=== PATIENT | male | born 1975 | race Caucasian/White ===

== ENCOUNTER → 2020-11-20 | Outpatient (CLI) | payer BC ==
--- NOTE | 2020-11-20 10:29 | XR ---
EXAMINATION TYPE: XR knee complete LT DATE OF EXAM: 11/20/2020 COMPARISON: None HISTORY: 45-year-old male M25.562 TECHNIQUE: 4 views FINDINGS: Extensor mechanism is intact. No significant joint effusion. No acute fracture, subluxation, dislocat ion seen. The patella appropriately situated along the trochlear groove. IMPRESSION: No acute osseous abnormality seen.
== END | disposition home or self-care (01) ==
LOC: LABWHC1 09:47
PROVIDERS: ATTEND Internal Medicine
DX: M25.562 Pain in left knee (principal)

== ENCOUNTER → 2024-10-12 | Outpatient (CLI) | payer BC ==
--- NOTE | 2024-10-12 08:17 | US ---
EXAMINATION TYPE: US liver DATE OF EXAM: 10/12/2024 COMPARISON: NONE CLINICAL INDICATION: Male, 49 years old with history of R74.01 Elevation of levels of liver transamin ase l; elevated liver enzymes TECHNIQUE: Grayscale and color Doppler imaging of the right upper quadrant was performed. FINDINGS: EXAM MEASUREMENTS: Liver Length: 19.9 cm Gallbladder Wall: 0.15 cm CBD: 0.38 cm Right Kidney: 11.3 x 5.9 x 5.6 cm REFERRAL MANAGEMENT LIAISON NOTES: Pancreas: partially obscured by overlying bowel gas, parts seen appear wnl Liver: enlarged and heterogeneous some mild fatty infiltration is present. Gallbladder: wnl Evidence for sonographic Hudson's sign: no CBD: wnl Right Kidney: wnl IMPRESSION: 1. Hepatomegaly with mild fatty infiltration [facility], , 10/12/2024 8:14 AM
[2024-10-12 15:41] LABS: Hepatitis B Surface Antigen Nonreactive (Nonreactive); Hepatitis C IgG Antibody Nonreactive (Nonreactive)
[2024-10-12 15:47] LABS: Basophils # (A) 0.02 X 10*3/uL (0.00-0.10); Basophils % (A) 0.3 %; Eosinophils # (A) 0.11 X 10*3/uL (0.04-0.35); Eosinophils % (A) 1.7 %; HCT 45.5 % (39.6-50.0); HGB 14.5 g/dL (13.0-17.0); Lymphocytes # (A) 1.98 X 10*3/uL (0.90-5.00); Lymphocytes % (A) 30.9 %; MCH 25.7 pg (27.0-32.0); MCHC 31.9 g/dL (32.0-37.0); MCV 80.7 FL (80.0-97.0); Mean Platelet Volume 11.8 FL (9.5-12.2); Monocytes # (A) 0.38 X 10*3/uL (0.20-1.00); Monocytes % (A) 5.9 %; NRBC Per 100 WBC 0 X 10*3/uL (0.00-0.01); Neutrophils # (A) 3.86 X 10*3/uL (1.80-7.70); Neutrophils % (A) 60.3 %; Platelet Count 184 X 10*3/uL (140-440); RBC 5.64 X 10*6/uL (4.40-5.60); RDW 13.6 % (11.5-14.5); WBC 6.41 X 10*3/uL (4.50-10.00)
[2024-10-12 15:54] LABS: ALT 99 U/L (10-49); AST 76 U/L (14-35); Albumin 4.5 g/dL (3.8-4.9); Albumin/Globulin Ratio 2.05 Ratio (1.60-3.17); Alkaline Phosphatase 79 U/L (41-126); Blood Urea Nitrogen 10.4 mg/dL (9.0-27.0); Calcium 9.4 mg/dL (8.7-10.3); Carbon Dioxide 24.6 mmol/L (21.6-31.8); Chloride 105 mmol/L (96-109); Globulin 2.2 g/dL (1.6-3.3); Glucose 134 mg/dL (70-110); Potassium 4.3 mmol/L (3.5-5.5); Sodium 142 mmol/L (135-145); Total Bilirubin 0.5 mg/dL (0.3-1.2); Total Protein 6.7 g/dL (6.2-8.2)
[2024-10-12 17:52] LABS: Gliadin AB IgA, Deaminated Negative (Negative); Gliadin AB IgA, Unit <0.5 U/mL; Gliadin AB IgG, Deaminated Negative (Negative); Gliadin AB IgG, Unit <0.4 U/mL
== END | disposition home or self-care (01) ==
LOC: RADUSWWP 07:25
PROVIDERS: ATTEND Internal Medicine Gastroenterology
DX: K76.0 Fatty (change of) liver, not elsewhere classified (principal); R16.0 Hepatomegaly, not elsewhere classified; R74.01 Elevation of levels of liver transaminase levels; K52.9 Noninfective gastroenteritis and colitis, unspecified
CPT/HCPCS: 76705; 80053; 81596; 83516; 85025; 86803; 87340

== ENCOUNTER → 2024-10-19 | Outpatient (CLI) | payer BC ==
[2024-10-19 18:18] LABS: HCT 45.6 % (39.6-50.0); HGB 14.6 g/dL (13.0-17.0); MCH 25.8 pg (27.0-32.0); MCV 80.7 FL (80.0-97.0); Mean Platelet Volume 11.6 FL (9.5-12.2); NRBC Per 100 WBC 0 X 10*3/uL (0.00-0.01); Platelet Count 163 X 10*3/uL (140-440); RBC 5.65 X 10*6/uL (4.40-5.60); RDW 13.4 % (11.5-14.5); WBC 4.48 X 10*3/uL (4.50-10.00)
== END | disposition home or self-care (01) ==
LOC: LABWHC1 15:11
PROVIDERS: ATTEND Internal Medicine Gastroenterology
DX: K62.5 Hemorrhage of anus and rectum (principal)
CPT/HCPCS: 36415; 85027

== ENCOUNTER → 2024-10-22 | Day surgery (SDC) | payer BC ==
[2024-10-21 09:04] VITALS: BMI 33.9
[~2024-10-22] MED LIST: LACTATED RINGERS 1,000 ML IV SCH; LIDOCAINE 2% (PF) 20 MG/ML 5 ML VIAL ONE; PROPOFOL 10 MG/ML 20 ML VIAL IV ONE
[2024-10-22 07:18] VITALS: TEMP 95.5
[2024-10-22] MEDS: LACTATED RINGERS 1,000 ML IV ONE (07:25)
--- NOTE | 2024-10-22 08:18 | P.PCN ---
Date of Procedure: 10/22/24 Procedure(s) Performed: Brief history: Patient is a pleasant 49-year-old white male scheduled for an elective upper endoscopy as well as colonoscopy as a part of evaluation of GERD/chronic diarrhea with intermittent rectal bleeding for the last few weeks duration Procedure performed: Esophagogastroduodenoscopy with biopsy Colonoscopy with random biopsy Preoperative diagnosis: GERD Chronic diarrhea and intermittent rectal bleeding Anesthesia: MAC Procedure: After informed consent was obtained from the patient was brought into the endoscopy unit and IV sedation was administered by anesthesia under continuous monitoring. Initially upper endoscopy was done. The Olympus GF 160 video endoscope was inserted inserted into the mouth and esophagus intubated without any difficulty and was gradually advanced into the stomach and duodenum and carefully examined. The bulb and second part of the duodenum appeared normal. Is a 5 mm duodenal polyp that was removed by biopsy. The scope was then withdrawn into the stomach adequately insufflated with air and upon careful examination the antrum had gastritis and biopsies were done from this area. Mucosa of the body, cardia and fundus appeared normal. The scope was then withdrawn into the esophagus. The GE junction was located at 40 cm to the i ncisors. It appeared regular with no erythema erosions or ulcerations. Rest of the esophagus appeared normal. Patient tolerated the procedure well. At this time the patient continued to remain sedation. Initial digital rectal examination was normal. Olympus CF 160 video colonoscope was then inserted into the rectum and gradually advanced to the cecum without any difficulty. Careful examination was performed as the scope was gradually being withdrawn. The prep was excellent. The cecum, ascending colon, transverse colon, descending colon, appeared normal. Random biopsies were done from the ascending and descending colon to rule out microscopic/collagenous colitis. In the sigmoid colon there was a 5 mm polyp that was removed by cold snare polypectomy. In the rectum there was another 5 mm polyp removed by cold snare polypectomy. Sigmoid colon and rectum appeared normal. Retroflexion was performed in the rectum and no lesions were noted. Patient tolerated the procedure well. Impression: 1. Upper endoscopy revealed mild gastritis and 5 mm duodenal polyp status post biopsy 2. Colonoscopy revealed sigmoid colon polyp and a 5 mm rectal polyp status post cold snare polypectomy and the rest of the colon appeared normal Recommendations: Findings of this examination were discussed with the patient as well as his family. He was advised to follow-up with the biopsy results. If the biopsy reveals adenoma he can have repeat colonoscopy in 5 years. Follow-up in the office in 2 weeks.
[2024-10-22] MEDS: IV FLUID CONTINUATION 700 ML IV ONE (08:21)
[2024-10-22 08:37] VITALS: BP 128/84; PULSE 84; RESP 18
== END ==
LOC: ORWHC2ENDO 06:56
PROVIDERS: ATTEND Internal Medicine Gastroenterology
DX: K29.51 Unspecified chronic gastritis with bleeding (principal); D12.8 Benign neoplasm of rectum; K63.5 Polyp of colon; K31.7 Polyp of stomach and duodenum; K29.80 Duodenitis without bleeding; K52.9 Noninfective gastroenteritis and colitis, unspecified; K21.9 Gastro-esophageal reflux disease without esophagitis; I10 Essential (primary) hypertension; Z87.891 Personal history of nicotine dependence; Z98.890 Other specified postprocedural states
CPT/HCPCS: 88305; 45380; 45385; 43239; J2704; J2003